=== PATIENT | male | born 1970 | race Caucasian/White ===

== ENCOUNTER 2021-03-12 11:49 | Emergency (ER) | payer MEDICARE, SELFPAY ==
--- NOTE | ~2021-03-12 | US_ITS ---
EXAMINATION: US VENOUS ULTRASOUND WITH DOPPLER LOWER EXTREMITY, BILATERAL CLINICAL INFORMATION: Bilateral lower extremity pain and swelling COMPARISON: None TECHNIQUE: Ultrasound of the deep veins is performed from the hip to the calf with compression sonography and color and pulse Doppler assessment. Spectral analysis with color-flow imaging is performed. FINDINGS: RIGHT: There is normal venous compression and respiratory variation and augmented flow. The visualized common femoral vein, superficial femoral vein, profunda femoral vein, popliteal vein, and the trifurcation region shows no evidence of deep venous thrombosis. There is no significant popliteal fossa cyst. LEFT: There is normal venous compression and respiratory variation and augmented flow. The visualized common femoral vein, superficial femoral vein, profunda femoral vein, popliteal vein, and the trifurcation region shows no evidence of deep venous thrombosis. There is no significant popliteal fossa cyst. US/US venous duplex LE BI IMPRESSION: No DVT demonstrated in the bilateral lower extremity.
[2021-03-12 11:54] VITALS: BP 168/100; PULSE 115; O2SAT 98
[2021-03-12 11:58] VITALS: BP 131/74; PULSE 111; RESP 131; TEMP 36.6; O2SAT 98; BMI 50.5
--- NOTE | 2021-03-12 12:02 | PC.NURSE ---
PT HAS DIFFICULTY AMBULATING. PT WAS ABLE TO STAND AND PIVOT FROM EMS STRETCHER TO BED. ASSISTED PT TO CHANGE INTO HOSPITAL ATTIRE.
--- NOTE | 2021-03-12 12:13 | ED_ITS ---
HPI - General Adult General Chief complaint: General Medical Stated complaint: l leg edema and pain x2 days Time Seen by Provider: 03/12/21 11:58 Source: patient, EMS and induction coordination engineer Mode of arrival: EMS Limitations: no limitations History of Present Illness HPI narrative: 50-year-old male who just traveled from [place] complaining of bilateral ankle pain for the past 2 days, patient had a similar pain in the past and was diagnosed with gout patient is taking indomethacin. Patient decline fever, chills, trauma to the legs. No history of DVT in the past, no chest pain no shortness of breath. Related Data Previous Rx's Medication Instructions Recorded prednisone 20 mg tablet 20 mg PO BID #10 tab 03/12/21 Allergies Allergy/AdvReac Type Severity Reaction Status Date / Time No Known Allergies Allergy Verified 03/12/21 12:11 Review of Systems Review of Systems: All other systems are reviewed and are negative Constitutional: Reports as per HPI and Reports no additional constitutional complaints Eyes: Reports as per HPI and Reports no additional eye complaints Reports system reviewed and no additional complaints, except as documented Cardiovascular: Reports as per HPI and Reports no additional cardiovascular complaints Respiratory: Reports as per HPI and Reports no additional respiratory complaints Gastrointestinal: Reports as per HPI and Reports no additional gastrointestinal complaints Genitourinary: Reports no additional female genitourinary complaints Musculoskeletal: Reports no additional musculoskeletal complaints Skin/Breast: Reports system reviewed and no additional complaints, except as docu Psychiatric: Reports no additional psychiatric complaints Endocrine: Reports no additional endocrine complaints Hematologic/Lymphatic: Reports no additional hematologic/lymphatic complaints Allergic/Immunologic: Reports no additional allergic/immunologic complaints Reports system reviewed and no additional complaints, except as documented and Reports Abnormal speech present ON LICENSE OF [facility] Past Medical History Medical History GERD (gastroesophageal reflux disease) Gout HTN (hypertension) Social History Social History Alcohol intake: never Patient Tobacco Use Status: Former Tobacco user Smoked in Last 30 Days: No Use of substances other than those prescribed or required for medical reasons: No Advance Directives: No Advance Directives Information Provided: No Physical Exam Vital Signs: Vital Signs: Last Vital Signs Temp 98.8 F 03/12/21 13:56 Pulse 102 H 03/12/21 13:56 Resp 18 03/12/21 13:56 BP 112/73 03/12/21 13:56 Pulse Ox 98 03/12/21 13:56 Body Mass Index 50.5 Vital signs have been reviewed, and was corrected heart rate is 99 beats per minutes, respiratory rate is 14 per minute, blood pressure is 139/71, O2 sat is 98%, temp is 98.0 degrees. Appearance: Alert. Oriented X3. No acute distress. Head: Normal external exam. Normocephalic. Atraumatic. No Butts signs noted. No raccoon eyes noted Eyes: PERRLA. EOMI. Conjunctiva and sclera normal. Eyelids normal. ENT: TM's Normal. Pharynx normal. Uvula midline. Moist mucous membranes. No trismus noted. No drooling noted. No muffled voice noted. Neck: Normal inspection. Neck supple. FROM. No adenopathy. Thyroid Normal. No meningeal signs. No neck mass noted. CVS: Normal heart rate and rhythm. Heart sound normal. No murmurs noted. Pulses normal throughout. Respiratory: No respiratory distress. Painless inspiration. Breath sounds normal. No wheezes/rales/rhonchi noted. Chest nontender. No accessory muscle usage noted or decreased air movement noted. Abdomen: Soft and nontender. Bowel sounds normal in all 4 quadrants. No distention noted. No organomegaly noted. No visible injury noted. Back: No CVA tenderness. Full range of motion noted. Skin: Skin warm and dry. Normal skin color. Normal skin turgor. No rashes/lesions/lacerations noted. Extremities: No lower extremity edema. Extremities exhibit normal range of motion. Extremities nontender. Neuro: Oriented X 3. Cranial nerve exam: II-XII are grossly intact No motor deficit. No sensory deficit. Reflexes normal. Course Course Course Narrative: Assessment and plan. 50-year-old male came in with bilateral ankle pain, patient with history of gout and pain is similar to his gout attack, patient had recent travel ultrasound showed no DVT. Will discharge the patient on NSAIDs. Medical Decision Making Imaging Data Lower extremities ultrasound bilateral: Radiologist's impression: No DVT to lower extremities bilaterally. Discharge Plan Discharge Clinical Impression: Gout, arthritis Patient Disposition: Home, Self-Care Instructions: Gout (ED) Prescriptions: New prednisone 20 mg tablet 20 mg PO BID Qty: 10 RF: 0 Referrals: Physician,None [Primary Care Provider] - 2 days
[2021-03-12] MEDS: Ondansetron ODT 4 MG TAB.RAPDIS TRANSLINGU (12:38)
[2021-03-12] MEDS: predniSONE 20 MG TABLET 60 MG PO (12:38)
[2021-03-12] MEDS: Ketorolac Tromethamine 60 MG/2 ML VIAL IM (12:38)
[2021-03-12 13:56] VITALS: BP 112/73; PULSE 102; RESP 18; TEMP 37.1; O2SAT 98
== END 2021-03-12 16:16 | disposition home or self-care (01) ==
PROVIDERS: Emergency Provider Emergency Medicine
DX: M10.072 Idiopathic gout, left ankle and foot (principal); M10.071 Idiopathic gout, right ankle and foot; R60.0 Localized edema; Z79.899 Other long term (current) drug therapy; Z87.891 Personal history of nicotine dependence
CPT/HCPCS: 93970; 96372; 99284; J1885